=== PATIENT | female | born 1965 | race Caucasian/White ===

== ENCOUNTER 2017-03-07 15:49 | Emergency (ER) | payer OTHER ==
[~2017-03-07] VITALS: Ht 149.9 cm; Wt 31.1 kg
[2017-03-07 16:11] VITALS: BP 118/80
== END 2017-03-07 17:45 | disposition home or self-care (01) ==
LOC: ED 15:49
DX: S05.02XA Injury of conjunctiva and corneal abrasion without foreign body, left eye, initial encounter (principal); Q90.9 Down syndrome, unspecified; X58.XXXA Exposure to other specified factors, initial encounter; Y93.89 Activity, other specified; Y92.89 Other specified places as the place of occurrence of the external cause; Y99.8 Other external cause status

== ENCOUNTER 2017-06-23 14:15 | Inpatient (IN) | payer OTHER, MEDICAID ==
[~2017-06-23] VITALS: Ht 144.8 cm; Wt 33.2 kg
[2017-06-23 16:22] LABS: BASOPHIL % 0.9 % (0-2); PLATELET COUNT 360 x10^3mcL (130-400); RED CELL DISTRIBUTION WIDTH 14.1 % (11.5-14.5)
[2017-06-23 16:38] LABS: CALCIUM 9.6 mg/dL (8.5-10.1); CARBON DIOXIDE 35.3 mmol/L (21-32); CHLORIDE SERUM 97 mmol/L (98-107); CREATININE SERUM 0.5 mg/dL (0.6-1.0); GFR1 > 60 mL/min; GLUCOSE SERUM 87 mg/dL (74-106); POTASSIUM SERUM 3.5 mmol/L (3.5-5.1); SODIUM SERUM 140 mmol/L (136-145)
[2017-06-23 16:42] LABS: ALKALINE PHOSPHATASE 71 U/L (46-116); ALT/SGPT 21 U/L (14-59); AST/SGOT 34 U/L (15-37); BILIRUBIN TOTAL 0.2 mg/dL (0.20-1.00); LIPASE 135 IU/L (73-393)
[2017-06-23 16:53] LABS: TOTAL PROTEIN, SERUM 8.6 g/dL (6.4-8.2)
[2017-06-23] MEDS ORDERED: XANAX0.25 MG PO (18:15)
[2017-06-23 19:20] LABS: RED BLOOD CELLS 3.89 M/mm3 (4.10-5.10)
[2017-06-23 19:46] LABS: TOTAL IRON BINDING CAPACITY 328 ug/dL (250-450)
[2017-06-23 19:47] LABS: IRON 20 ug/dL (50-170)
[2017-06-23 19:51] LABS: MAGNESIUM 1.9 mg/dL (1.8-2.4); PHOSPHOROUS 3.2 mg/dL (2.5-4.9)
[2017-06-23 19:55] LABS: CHOLESTEROL/HDL RATIO 2.4
[2017-06-23 20:03] VITALS: BP 106/68
[2017-06-23 20:04] LABS: FREE T4 1.51 ng/dL (0.76-1.46); FREE THYROXINE INDEX 3.3 ug/dL (1.4-4.5); T4(THYROXINE) 9.7 ug/dL (4.7-13.3)
[2017-06-23 20:06] LABS: T3 TOTAL 0.96 ng/mL
[2017-06-23 20:09] VITALS: Ht 144.8 cm; Wt 33.2 kg
[2017-06-23 20:27] VITALS: BP 106/68
[2017-06-24 04:53] VITALS: BP 108/76
[2017-06-24 07:23] LABS: CALCIUM 7.8 mg/dL (8.5-10.1); CARBON DIOXIDE 29.7 mmol/L (21-32); CHLORIDE SERUM 94 mmol/L (98-107); CREATININE SERUM 0.5 mg/dL (0.6-1.0); GFR1 > 60 mL/min; GLUCOSE SERUM 416 mg/dL (74-106); MAGNESIUM 1.5 mg/dL (1.8-2.4); POTASSIUM SERUM 3.5 mmol/L (3.5-5.1); SODIUM SERUM 132 mmol/L (136-145)
[2017-06-24 08:10] LABS: PLATELET COUNT 265 x10^3mcL (130-400); RED CELL DISTRIBUTION WIDTH 14.1 % (11.5-14.5)
[2017-06-24 08:13] LABS: BASOPHIL % 0 % (0-2)
[2017-06-24 11:06] VITALS: BP 95/55
[2017-06-24 14:45] VITALS: BP 92/66
[2017-06-24 17:43] VITALS: BP 101/61
[2017-06-24 18:44] LABS: BASOPHIL % 0.3 % (0-2); PLATELET COUNT 331 x10^3mcL (130-400); RED CELL DISTRIBUTION WIDTH 14.8 % (11.5-14.5)
[2017-06-25 05:27] VITALS: BP 94/59
[2017-06-25 07:26] LABS: PLATELET COUNT 361 x10^3mcL (130-400)
[2017-06-25 07:30] LABS: CALCIUM 8.2 mg/dL (8.5-10.1); CHLORIDE SERUM 101 mmol/L (98-107); CREATININE SERUM 0.5 mg/dL (0.6-1.0); GFR1 > 60 mL/min; GLUCOSE SERUM 81 mg/dL (74-106); MAGNESIUM 2.3 mg/dL (1.8-2.4); POTASSIUM SERUM 3.4 mmol/L (3.5-5.1); SODIUM SERUM 139 mmol/L (136-145)
[2017-06-25 07:32] LABS: BASOPHIL % 0 % (0-2)
[2017-06-25 10:11] VITALS: BP 101/60
[2017-06-25 13:05] VITALS: BP 90/63
[2017-06-25 18:58] VITALS: BP 98/64
[2017-06-25 21:36] VITALS: BP 90/62
[2017-06-25 22:41] LABS: microscopic required? NO
[2017-06-25 22:59] LABS: urine erythrocyte NEGATIVE (NEGATIVE)
[2017-06-26 05:00] VITALS: BP 97/60
[2017-06-26 06:56] LABS: RED CELL DISTRIBUTION WIDTH 14.4 % (11.5-14.5)
[2017-06-26 07:00] LABS: PLATELET COUNT 435 x10^3mcL (130-400)
[2017-06-26 07:01] LABS: BASOPHIL % 0 % (0-2)
[2017-06-26 07:33] LABS: CALCIUM 8.8 mg/dL (8.5-10.1); CHLORIDE SERUM 101 mmol/L (98-107); CREATININE SERUM 0.5 mg/dL (0.6-1.0); GFR1 > 60 mL/min; GLUCOSE SERUM 84 mg/dL (74-106); POTASSIUM SERUM 4.3 mmol/L (3.5-5.1); SODIUM SERUM 137 mmol/L (136-145)
[2017-06-26 09:08] VITALS: BP 86/22
[2017-06-26 13:00] VITALS: BP 89/53
[2017-06-26 18:29] VITALS: BP 96/69
[2017-06-26 20:31] VITALS: BP 100/67
[2017-06-27 04:40] VITALS: BP 123/80
[2017-06-27 06:46] LABS: RED CELL DISTRIBUTION WIDTH 14.1 % (11.5-14.5)
[2017-06-27 06:52] LABS: BASOPHIL % 0 % (0-2); PLATELET COUNT 461 x10^3mcL (130-400)
[2017-06-27 07:02] LABS: CALCIUM 8.8 mg/dL (8.5-10.1); CARBON DIOXIDE 30.2 mmol/L (21-32); CHLORIDE SERUM 103 mmol/L (98-107); CREATININE SERUM 0.5 mg/dL (0.6-1.0); GFR1 > 60 mL/min; GLUCOSE SERUM 82 mg/dL (74-106); POTASSIUM SERUM 4.3 mmol/L (3.5-5.1); SODIUM SERUM 139 mmol/L (136-145)
[2017-06-27 07:06] LABS: ALBUMIN 2.2 g/dL (3.4-5.0)
[2017-06-27 08:50] VITALS: BP 106/66
[2017-06-27 16:52] VITALS: BP 111/73
[2017-06-27 20:45] VITALS: BP 111/82
[2017-06-28 05:49] VITALS: BP 95/63
[2017-06-28 06:05] LABS: BASOPHIL % 0.1 % (0-2); RED CELL DISTRIBUTION WIDTH 14.4 % (11.5-14.5)
[2017-06-28 07:50] LABS: PLATELET COUNT 532 x10^3mcL (130-400)
[2017-06-28 08:00] VITALS: BP 90/56; BP 920/56
[2017-06-28 08:06] LABS: CALCIUM 8.7 mg/dL (8.5-10.1); CARBON DIOXIDE 29.3 mmol/L (21-32); CHLORIDE SERUM 100 mmol/L (98-107); CREATININE SERUM 0.4 mg/dL (0.6-1.0); GFR1 > 60 mL/min; GLUCOSE SERUM 86 mg/dL (74-106); POTASSIUM SERUM 4.3 mmol/L (3.5-5.1); SODIUM SERUM 136 mmol/L (136-145)
[2017-06-28 18:13] VITALS: BP 97/61
[2017-06-28 21:05] VITALS: BP 92/58
[2017-06-29 06:13] VITALS: BP 97/64
[2017-06-29 07:16] LABS: BASOPHIL % 0.1 % (0-2); RED CELL DISTRIBUTION WIDTH 13.9 % (11.5-14.5)
[2017-06-29 07:45] VITALS: BP 101/66
[2017-06-29 07:48] LABS: PLATELET COUNT 523 x10^3mcL (130-400)
[2017-06-29 18:42] VITALS: BP 95/60
[2017-06-29 22:00] VITALS: BP 97/60
[2017-06-30 04:45] VITALS: BP 102/67
[2017-06-30 06:24] LABS: BASOPHIL % 0.1 % (0-2)
[2017-06-30 06:41] LABS: PLATELET COUNT 518 x10^3mcL (130-400); RED CELL DISTRIBUTION WIDTH 14.8 % (11.5-14.5)
[2017-06-30 10:01] VITALS: BP 88/57
[2017-06-30 14:10] VITALS: BP 93/60
[2017-06-30 16:31] VITALS: BP 93/50
[2017-06-30 21:14] VITALS: BP 96/61
[2017-07-01 05:44] VITALS: BP 99/64
[2017-07-01 07:20] LABS: BASOPHIL % 0 % (0-2); RED CELL DISTRIBUTION WIDTH 14.4 % (11.5-14.5)
[2017-07-01 07:28] LABS: PLATELET COUNT 562 x10^3mcL (130-400)
[2017-07-01 09:58] VITALS: BP 103/69
[2017-07-01] MEDS ORDERED: COL100UDC PEG (10:34)
[2017-07-01] MEDS ORDERED: REG5 PEG (10:35)
[2017-07-01] MEDS ORDERED: VITC NG (10:37)
[2017-07-01] MEDS ORDERED: FER300 PO (10:37)
[2017-07-01 17:55] VITALS: BP 101/66
[2017-07-01 20:35] VITALS: BP 93/53
[2017-07-02 05:34] VITALS: BP 113/78
[2017-07-02 09:04] VITALS: BP 109/62
[2017-07-02 17:36] VITALS: BP 109/62
[2017-07-02 21:00] VITALS: BP 93/63
[2017-07-03 05:39] VITALS: BP 102/60
[2017-07-03 08:45] VITALS: BP 97/57
[2017-07-03 17:16] VITALS: BP 97/65
[2017-07-03 21:11] VITALS: BP 92/65
[2017-07-04 09:51] VITALS: BP 98/70
[2017-07-04 18:45] VITALS: BP 88/55
[2017-07-04 21:06] VITALS: BP 93/63
[2017-07-05 05:53] VITALS: BP 93/61
[2017-07-05 08:27] VITALS: BP 93/61
[2017-07-05 10:30] VITALS: BP 97/61
[2017-07-05 12:53] LABS: BASOPHIL % 0.5 % (0-2); PLATELET COUNT 423 x10^3mcL (130-400); RED CELL DISTRIBUTION WIDTH 14.6 % (11.5-14.5)
[2017-07-05 13:01] LABS: CALCIUM 9.2 mg/dL (8.5-10.1); CARBON DIOXIDE 37.2 mmol/L (21-32); CHLORIDE SERUM 99 mmol/L (98-107); CREATININE SERUM 0.5 mg/dL (0.6-1.0); GFR1 > 60 mL/min; GLUCOSE SERUM 94 mg/dL (74-106); MAGNESIUM 1.8 mg/dL (1.8-2.4); PHOSPHOROUS 3.8 mg/dL (2.5-4.9); SODIUM SERUM 141 mmol/L (136-145)
[2017-07-05 17:14] VITALS: BP 104/58
== END 2017-07-05 19:35 | disposition home or self-care (01) | DRG 177 ==
LOC: ED 14:15 → MU 18:23 → DU 18:23 → MU 06-26 17:12
PROVIDERS: Emergency Medicine; Family Medicine; Family Medicine Sports Medicine; Internal Medicine Gastroenterology
PROC: 0DH68UZ Insertion of Feeding Device into Stomach, Via Natural or Artificial Opening Endoscopic (ICD-10-PCS; principal; 2017-06-30 14:30)
DX: J69.0 Pneumonitis due to inhalation of food and vomit (principal); N17.0 Acute kidney failure with tubular necrosis; E43 Unspecified severe protein-calorie malnutrition; E87.1 Hypo-osmolality and hyponatremia; F72 Severe intellectual disabilities; Z68.1 Body mass index [BMI] 19.9 or less, adult; Q90.9 Down syndrome, unspecified; R62.7 Adult failure to thrive; E83.42 Hypomagnesemia; D47.3 Essential (hemorrhagic) thrombocythemia; D50.9 Iron deficiency anemia, unspecified; F41.9 Anxiety disorder, unspecified
CPT/HCPCS: 43235; 43760; 82962; 83880; 84439; 92507-GN; 92526-GN; 92610; J1200; J1610; J1885; J1956; J2250; J2310; J2405; J2765; J2916; J3010; J3475; J3480; J3490; J7030; J7620; Q0092

== ENCOUNTER 2017-08-11 18:34 | Inpatient (IN) | payer OTHER, MEDICAID ==
[~2017-08-11] VITALS: Ht 144.8 cm; Wt 32.2 kg
[~2017-08-11 18:34] MED LIST: COL100UDC PEG; FER300 PO; REG5 PEG; VITC NG; XANAX0.25 MG PO
[2017-08-11 19:44] LABS: PLATELET COUNT 208 x10^3mcL (130-400)
[2017-08-11 19:46] LABS: BASOPHIL % 0 % (0-2); RED CELL DISTRIBUTION WIDTH 15.2 % (11.5-14.5)
[2017-08-11 19:47] LABS: CALCIUM 9.9 mg/dL (8.5-10.1); CARBON DIOXIDE 33.2 mmol/L (21-32); CHLORIDE SERUM 99 mmol/L (98-107); CREATININE SERUM 0.6 mg/dL (0.6-1.0); GFR1 > 60 mL/min; GLUCOSE SERUM 187 mg/dL (74-106); SODIUM SERUM 138 mmol/L (136-145)
[2017-08-11 19:51] LABS: ALBUMIN 3.5 g/dL (3.4-5.0); ALKALINE PHOSPHATASE 86 U/L (46-116); ALT/SGPT 19 U/L (14-59); AST/SGOT 23 U/L (15-37); BILIRUBIN TOTAL 0.1 mg/dL (0.20-1.00); LIPASE 86 IU/L (73-393)
[2017-08-11 19:52] LABS: TOTAL PROTEIN, SERUM 8.5 g/dL (6.4-8.2)
[2017-08-11 20:49] LABS: microscopic required? NO
[2017-08-11 20:58] LABS: urine erythrocyte NEGATIVE (NEGATIVE)
[2017-08-11 22:33] LABS: MAGNESIUM 1.8 mg/dL (1.8-2.4); PHOSPHOROUS 3.7 mg/dL (2.5-4.9)
[2017-08-11 22:34] LABS: CHOLESTEROL/HDL RATIO 2.2; T3 TOTAL 0.79 ng/mL
[2017-08-11 22:53] LABS: FREE T4 0.87 ng/dL (0.76-1.46); FREE THYROXINE INDEX 2.4 ug/dL (1.4-4.5); T4(THYROXINE) 7.3 ug/dL (4.7-13.3)
[2017-08-11 23:09] VITALS: BP 117/74
[2017-08-11] MEDS ORDERED: METOCLOPRAMIDE5 M1 GT (23:59)
[2017-08-12] MEDS ORDERED: ALPRAZOLAM0.25 MG GT
[2017-08-12] MEDS ORDERED: PHARMASSURE VI500 MG PO (00:41)
[2017-08-12] MEDS ORDERED: NATURAL IRON65 MG PO (00:41)
[2017-08-12 05:38] VITALS: BP 105/69
[2017-08-12 07:19] LABS: PLATELET COUNT 174 x10^3mcL (130-400)
[2017-08-12 07:22] LABS: BASOPHIL % 0 % (0-2)
[2017-08-12 07:30] LABS: CALCIUM 8.8 mg/dL (8.5-10.1); CARBON DIOXIDE 31.3 mmol/L (21-32); CHLORIDE SERUM 106 mmol/L (98-107); CREATININE SERUM 0.5 mg/dL (0.6-1.0); GFR1 > 60 mL/min; GLUCOSE SERUM 93 mg/dL (74-106); MAGNESIUM 1.6 mg/dL (1.8-2.4); PHOSPHOROUS 2.9 mg/dL (2.5-4.9); POTASSIUM SERUM 3.8 mmol/L (3.5-5.1); SODIUM SERUM 142 mmol/L (136-145)
[2017-08-12 09:29] VITALS: BP 99/67
[2017-08-12 16:05] VITALS: BP 102/64
[2017-08-12 20:47] VITALS: BP 119/79
[2017-08-13 05:43] VITALS: BP 96/67
[2017-08-13 05:55] LABS: BASOPHIL % 0.5 % (0-2); PLATELET COUNT 156 x10^3mcL (130-400)
[2017-08-13 06:19] LABS: RED CELL DISTRIBUTION WIDTH 14.6 % (11.5-14.5)
[2017-08-13 06:27] LABS: CALCIUM 8.6 mg/dL (8.5-10.1); CARBON DIOXIDE 31.4 mmol/L (21-32); CHLORIDE SERUM 104 mmol/L (98-107); CREATININE SERUM 0.5 mg/dL (0.6-1.0); GFR1 > 60 mL/min; GLUCOSE SERUM 88 mg/dL (74-106); SODIUM SERUM 139 mmol/L (136-145)
[2017-08-13 13:47] VITALS: BP 96/64
[2017-08-13 21:26] VITALS: BP 110/77
[2017-08-14 06:19] VITALS: BP 96/66
[2017-08-14 07:45] LABS: BASOPHIL % 0.2 % (0-2); PLATELET COUNT 154 x10^3mcL (130-400)
[2017-08-14 07:49] LABS: RED CELL DISTRIBUTION WIDTH 14.7 % (11.5-14.5)
[2017-08-14 08:24] LABS: CALCIUM 8.9 mg/dL (8.5-10.1); CARBON DIOXIDE 34.3 mmol/L (21-32); CHLORIDE SERUM 100 mmol/L (98-107); CREATININE SERUM 0.5 mg/dL (0.6-1.0); GFR1 > 60 mL/min; GLUCOSE SERUM 91 mg/dL (74-106); POTASSIUM SERUM 4.2 mmol/L (3.5-5.1); SODIUM SERUM 137 mmol/L (136-145)
[2017-08-14 09:24] VITALS: BP 93/48
[2017-08-14] MEDS ORDERED: LAC GT (11:15)
[2017-08-14] MEDS ORDERED: DUL10S RC (11:28)
[2017-08-14] MEDS ORDERED: COL100UDC PO (11:29)
[2017-08-14 11:47] VITALS: BP 93/48
== END 2017-08-14 13:27 | disposition home or self-care (01) | DRG 388 ==
LOC: ED 18:34 → DU 21:46
PROVIDERS: Emergency Medicine; Family Medicine
DX: K56.7 Ileus, unspecified (principal); J69.0 Pneumonitis due to inhalation of food and vomit; N17.0 Acute kidney failure with tubular necrosis; F72 Severe intellectual disabilities; Z68.1 Body mass index [BMI] 19.9 or less, adult; Q90.9 Down syndrome, unspecified; K44.9 Diaphragmatic hernia without obstruction or gangrene; M41.35 Thoracogenic scoliosis, thoracolumbar region; D64.9 Anemia, unspecified; E03.9 Hypothyroidism, unspecified; K59.00 Constipation, unspecified; R13.10 Dysphagia, unspecified; Z93.1 Gastrostomy status
CPT/HCPCS: 83880; 84439; J0694; J1956; J2550; J3010; J3475; J3490; J7030; J8597; Q0162; Q9967

== ENCOUNTER 2017-09-03 20:45 | Emergency (ER) | payer OTHER, MEDICAID ==
[~2017-09-03] VITALS: Ht 154.9 cm; Wt 29.0 kg
[~2017-09-03 20:45] MED LIST changes: +ALPRAZOLAM0.25 MG GT; +COL100UDC PO; +DUL10S RC; +LAC GT; +METOCLOPRAMIDE5 M1 GT; +NATURAL IRON65 MG PO; +PHARMASSURE VI500 MG PO
[2017-09-03 20:55] VITALS: Ht 154.9 cm; Wt 29.0 kg
[2017-09-04 00:02] VITALS: BP 125/68
== END 2017-09-04 00:02 | disposition home or self-care (01) ==
LOC: ED 20:45
DX: K94.23 Gastrostomy malfunction (principal); Q90.9 Down syndrome, unspecified; R13.10 Dysphagia, unspecified
CPT/HCPCS: Q0092; Q9967

== ENCOUNTER 2017-12-02 09:26 | Emergency (ER) | payer OTHER, MEDICAID ==
[~2017-12-02] VITALS: Ht 154.9 cm; Wt 30.2 kg
[2017-12-02 09:33] VITALS: BP 114/65; Ht 154.9 cm; Wt 30.2 kg
== END 2017-12-02 10:16 | disposition home or self-care (01) ==
LOC: ED 09:26
DX: Z43.1 Encounter for attention to gastrostomy (principal)

== ENCOUNTER 2017-12-20 11:20 | Emergency (ER) | payer OTHER, MEDICAID ==
[~2017-12-20] VITALS: Ht 144.8 cm; Wt 30.4 kg
[2017-12-20 11:32] VITALS: BP 91/73; Ht 144.8 cm; Wt 30.4 kg
== END 2017-12-20 13:18 | disposition home or self-care (01) ==
LOC: ED 11:20
DX: Z46.59 Encounter for fitting and adjustment of other gastrointestinal appliance and device (principal)

== ENCOUNTER 2018-03-03 14:38 | Emergency (ER) | payer OTHER, MEDICAID ==
[2018-03-03 14:43] VITALS: BP 126/70
== END 2018-03-03 16:55 | disposition home or self-care (01) ==
LOC: ED 14:38
DX: K94.23 Gastrostomy malfunction (principal); E46 Unspecified protein-calorie malnutrition

== ENCOUNTER 2018-07-03 09:30 | Emergency (ER) | payer OTHER, MEDICAID ==
[~2018-07-03] VITALS: Ht 134.6 cm; Wt 28.6 kg
[2018-07-03 09:45] VITALS: Ht 134.6 cm; Wt 28.6 kg
[2018-07-03 12:10] VITALS: BP 102/66
== END 2018-07-03 12:08 | disposition home or self-care (01) ==
LOC: ED 09:30
DX: K59.00 Constipation, unspecified (principal); F79 Unspecified intellectual disabilities; Q90.9 Down syndrome, unspecified

== ENCOUNTER 2020-04-12 21:15 | Emergency (ER) | payer OTHER, MEDICAID ==
[~2020-04-12] VITALS: Ht 149.9 cm; Wt 31.8 kg
[2020-04-12 21:21] VITALS: Ht 149.9 cm; Wt 31.8 kg
[2020-04-12 23:25] LABS: BASOPHIL % 0.1 % (0-2); PLATELET COUNT 361 x10^3mcL (130-400)
[2020-04-12 23:26] LABS: RED CELL DISTRIBUTION WIDTH 14.6 % (11.5-14.5)
[2020-04-12 23:39] LABS: CALCIUM 8.8 mg/dL (8.5-10.1); CARBON DIOXIDE 38.5 mmol/L (21-32); CHLORIDE SERUM 97 mmol/L (98-107); CREATININE SERUM 0.4 mg/dL (0.6-1.0); GFR1 > 60 mL/min; GLUCOSE SERUM 92 mg/dL (74-106); SODIUM SERUM 133 mmol/L (136-145)
[2020-04-12 23:44] LABS: ALKALINE PHOSPHATASE 237 U/L (46-116); ALT/SGPT 17 U/L (14-59); AST/SGOT 21 U/L (15-37); BILIRUBIN TOTAL 0.2 mg/dL (0.20-1.00)
[2020-04-12 23:52] LABS: ALBUMIN 3.2 g/dL (3.4-5.0)
[2020-04-13 03:18] VITALS: BP 90/58
== END 2020-04-13 03:19 | disposition short-term general hospital (02) ==
LOC: ED 21:15
PROVIDERS: Emergency Medicine
DX: S32.9XXA Fracture of unspecified parts of lumbosacral spine and pelvis, initial encounter for closed fracture (principal); Z98.890 Other specified postprocedural states; Z20.828 Contact with and (suspected) exposure to other viral communicable diseases; W18.30XA Fall on same level, unspecified, initial encounter; Y93.89 Activity, other specified; Y92.89 Other specified places as the place of occurrence of the external cause; Y99.8 Other external cause status
CPT/HCPCS: Q0092; U0003